=== PATIENT | female | born 1985 | race Two or more races ===

== ENCOUNTER → 2023-12-04 | Emergency (ER) | payer SELFPAY ==
[~2023-12-04] VITALS: Ht 160 cm; Wt 160.0 kg
[~2023-12-04] MED LIST: HYDR-3682 PO; SERT25TA28 PO
[2023-12-04 15:39] VITALS: BP 151/92; RESP 24; O2SAT 100
[2023-12-04 15:43] VITALS: PULSE 88
== END | disposition left against medical advice (07) ==
LOC: EDBD 15:33 → ER 15:33
DX: R07.89 Other chest pain (principal); F41.9 Anxiety disorder, unspecified; F19.10 Other psychoactive substance abuse, uncomplicated; F17.210 Nicotine dependence, cigarettes, uncomplicated; F12.90 Cannabis use, unspecified, uncomplicated; F15.90 Other stimulant use, unspecified, uncomplicated; Z59.00 Homelessness unspecified
CPT/HCPCS: 93005